=== PATIENT | female | born 1970 | race African-American/Black ===

== ENCOUNTER 2018-08-28 05:51 | Inpatient (IN) | payer OTHER ==
[~2018-08-28] VITALS: Ht 160 cm; Wt 85.7 kg
[2018-08-28] VITALS (16 sets, daily range): BP systolic 102–139; BP diastolic 68–92
[~2018-08-28 05:51] MED LIST: HYDROCHLOROTHIA25 MG ORAL; IBUPROFEN600 MG ORAL; LORATADINE10 M2 PO; LOSARTAN POTASS50 MG ORAL; OMEPRAZOLE20 M2 ORAL
[2018-08-28] MEDS ORDERED: LR 1000ml 1,000 ML IVLG SCH (06:19)
[2018-08-28] MEDS ORDERED: Zemuron 50mg/5ml Inj IV ONE (06:23)
[2018-08-28] MEDS ORDERED: Meperidine 50mg/ml Inj(FOR RIGORS ONLY) IVP PRN (06:30)
[2018-08-28] MEDS ORDERED: Acetaminophen (Non formulary) 100 ML IV ONE (06:30)
[2018-08-28] MEDS ORDERED: Atropine Sulfate 0.4mg/ml inj IVP PRN (06:30)
[2018-08-28] MEDS ORDERED: Ketorolac 30mg Inj IV PRN ×2 (06:30)
[2018-08-28] MEDS ORDERED: oxyCODONE HCL/Acetaminophen 5/325mg ORAL PRN (06:30)
[2018-08-28] MEDS ORDERED: Midazolam 2mg/2ml Inj IVP PRN (06:30)
[2018-08-28] MEDS ORDERED: Metoclopramide 10mg/2ml Inj IVP PRN (06:30)
[2018-08-28] MEDS ORDERED: LORazepam Inj 2mg/ml 1ml IV PRN (06:30)
[2018-08-28] MEDS ORDERED: DiphenhydrAMINE 50mg/ml Inj IVP PRN (06:30)
[2018-08-28] MEDS ORDERED: HYDROcodone/Acetamin 5/325 tab ORAL PRN ×2 (06:30→07:45)
[2018-08-28] MEDS ORDERED: HYDROcodone/Acetamin 7.5/325 tab ORAL PRN ×2 (06:30→07:45)
[2018-08-28] MEDS ORDERED: fentaNYL 100 mcg/2 mL IV PRN (06:30)
[2018-08-28] MEDS ORDERED: Hydromorphone 0.5mg/0.5ml inj IVP PRN (06:30)
--- NOTE | 2018-08-28 06:55 | NUR ---
IV LR WAS STARTED BY CULLEN ABDIOPS RN. NO S/S OF INFILTRATION.
[2018-08-28] MEDS ORDERED: Lidocaine 1% Plain 30 ml INJ ONE ×2 (06:57→09:56)
[2018-08-28] MEDS ORDERED: ceFAZolin sod 1 GM in NS 55 ML IVPB ONE (07:00)
[2018-08-28] MEDS ORDERED: Lidocaine 1% MPF 10mg/ml 5ml ONE (07:01)
[2018-08-28] MEDS ORDERED: Sodium Chloride 10ml vial INJ ONE (07:01)
[2018-08-28] MEDS ORDERED: Dexamethasone 4mg/ml vial ONE (07:01)
[2018-08-28] MEDS ORDERED: fentaNYL 100 mcg/2 mL IV ONE ×2 (07:02→08:19)
[2018-08-28] MEDS ORDERED: Vancomycin 1gm vial IVPB ONE (07:03)
[2018-08-28] MEDS ORDERED: Heparin 1000 units/ml 1ml Vial ONE (07:03)
[2018-08-28] MEDS ORDERED: Heparin 5000 units/ml inj ONE (07:03)
--- NOTE | 2018-08-28 07:05 | Anethesia Preoperative Eval ---
Anesthesia Pre-op PMH/ROS General Date of Evaluation: Aug 28, 2018 Time of Evaluation: 07:31 Anesthesiologist: Terrence ASA Score: ASA 3 Mallampati Score Class I : Soft palate, uvula, fauces, pillars visible Class II: Soft palate, uvula, fauces visible Class III: Soft palate, base of uvula visible Class IV: Only hard plate visible Mallampati Classification: Class II Surgeon: Sree Diagnosis: Back Pain Surgical Procedure: TLIF L5-S1 Anesthesia History: none Family History: no anesthesia problems Allergies: Coded Allergies: No Known Allergies (Unverified , 08/26/18) Medications: see eMAR Patient NPO?: Yes NPO Date: Aug 27, 2018 NPO Time: 2100 Past Medical History Cardiovascular: Reports: HTN Pulmonary: Reports: SHINE Gastrointestinal/Genitourinary: Reports: GERD Neurologic/Psychiatric: Reports: depression/anxiety, other - Migranes Hematology/Immune: Reports: other - SLE Other: obesity Anesthesia Pre-op Phys. Exam Physician Exam Last Vital Signs Date Time Temp Pulse Resp B/P (MAP) Pulse Ox O2 Delivery O2 Flow Rate FiO2 08/28/18 06:31 98.1 74 20 127/89 (102) 100 08/28/18 06:28 Room Air Constitutional: NAD Neurologic: CN 2-12 intact Cardiovascular: RRR Respiratory: CTA Gastrointestinal: S/NT/ND Airway Exam Mallampati Score: Class II MO: full ROM: limited Teeth: missing, intact Anesthesia Pre-op A/P Labs Urine Test Test 08/28/18 06:10 Urine HCG, Qualitative Negative (NEGATIVE) Risk Assessment & Plan Assessment: ASA 3 Plan: GA, SED, GlideScope Go Status Change Before Surgery: No Pre-Antibiotics Dru Grams Ancef IV Given Within 1 Hr of Incision: Yes Time Given: 07:46 Naeem Ocampo MD Aug 28, 2018 07:05
[2018-08-28] MEDS ORDERED: Gelfoam Size TOPIC ONE (07:08)
[2018-08-28] MEDS ORDERED: Bupivacaine w/Epi 0.5% 30ml Vial INJ ONE (07:08)
[2018-08-28] MEDS ORDERED: Thrombin 5000 units TOPIC ONE (07:08)
[2018-08-28] MEDS ORDERED: Bacitracin 50000 Units Vial ONE (07:09)
--- NOTE | 2018-08-28 07:24 | Pre-Procedure Note/Attestation ---
Pre-Procedure Note/Attestation Complete Prior to Procedure Procedure Narrative: TLIF L5S1 with BMAC and allograft Indications for Procedure Pre-Operative Diagnosis: l5S1 spondylosis, radiculopathy and annular tear and disc protrusion Attestation I attest that I discussed the nature of the procedure; its benefits; risks and complications; and alternatives (and the risks and benefits of such alternatives ), prior to the procedure, with the patient (or the patient's legal patient representative). I attest that, if there was a reasonable possibility of needing a blood transfusion, the patient (or the patient's legal patient representative) was given the [facility] standardized written summary, pursuant to the Sanjiv James Blood Safety Act ([place] Health and Safety Code # 1645, as amended). I attest that I re-evaluated the patient just prior to the surgery and that there has been no change in the patient's H&P, except as documented below: Kristopher Balbuena MD Aug 28, 2018 07:24
--- NOTE | 2018-08-28 07:29 | Immediate Post-Op Evaluation ---
Immediate Post-Op Evalulation Immediate Post-Op Evalulation Procedure: TLIF L5-S1 Date of Evaluation: Aug 28, 2018 Time of Evaluation: 12:02 IV Fluids: 800 LR Blood Products: 0 Estimated Blood Loss: 75 Urinary Output: 200 Blood Pressure Systolic: 125 Blood Pressure Diastolic: 79 Pulse Rate: 84 Respiratory Rate: 16 O2 Sat by Pulse Oximetry: 100 Temperature (Fahrenheit): 97.7 Pain Score (1-10): 3 Nausea: No Vomiting: No Complications 0 Patient Status: awake, reacts, patent, extubated, none Hydration Status: adequate Dru Grams Ancef IV Given Within 1 Hr of Incision: Yes Time Given: 07:46 Naeem Ocampo MD Aug 28, 2018 07:29
[2018-08-28] MEDS ORDERED: Propofol 1,000mg/ 100ml btl IV ONE (07:30)
[2018-08-28] MEDS ORDERED: LR 1000ml ONE (07:30)
[2018-08-28] MEDS ORDERED: Glycopyrrolate 0.2mg/ml 1ml Vial ONE ×2 (07:30→09:48)
[2018-08-28] MEDS ORDERED: Sterile Water Irrig 1000ml IRRIG ONE (07:30)
[2018-08-28] MEDS ORDERED: Neostigmine 1mg/ml 10ml Inj ONE (07:30)
[2018-08-28] MEDS ORDERED: NS Irrig 1000ml ONE (07:30)
[2018-08-28] MEDS ORDERED: HYDROmorphone 1mg/ml Carpuject IVP PRN (07:45)
[2018-08-28] MEDS ORDERED: HYDROmorphone 1mg/ml Carpuject SUBQ PRN (07:45)
[2018-08-28] MEDS ORDERED: Milk of Magnesia 30ml Ud ORAL PRN (07:45)
[2018-08-28] MEDS ORDERED: Naloxone 0.4mg/ml Inj IVP PRN (07:45)
--- NOTE | 2018-08-28 11:29 | Diagnostic Imaging Report ---
INDICATION: Pain, intraoperative, pain in back and bilateral lower extremities TECHNIQUE: Intraoperative imaging Fluoroscopy time: 28.8 seconds Total dose: 0.25067 mGym2 Total number of images: 3 COMPARISON: None FINDINGS: Initial image demonstrates surgical tool projecting posterior to what is presumably the L5-S1 disc space. Subsequent images document posterior fusion of L5-S1 and placement of a disc spacer. IMPRESSION: Intraoperative imaging, as described
--- NOTE | 2018-08-28 11:36 | Brief Operative Note ---
Immediate Post Operative Note Operative Note Pre-op Diagnosis: l5S1 spondylosis, radiculopathy and annular tear and disc protrusion Procedure: TLIF L5S1 with BMAC Post-op Diagnosis: same as pre-op Findings: consistent w/pre-op dx studies Surgeon: Sree Md Do Resident Urgent Care: [facility] Anesthesiologist: Stephon Anesthesia: general Specimen: yes - L5S1 disc Complications: none Condition: stable Fluids: 700cc Estimated Blood Loss: minimal - 75cc Drains: hemovac Implant(s) used?: Yes - RTI interbody device; Nuvasive pedicle screws Kristopher Balbuena MD Aug 28, 2018 11:36
--- NOTE | 2018-08-28 13:50 | NUR ---
NURSE NOTES: Received report from Nikki Charge nurse. Patient a/o x4 lying on the bed. Surgical back site dressing is dry and intact. Denies any pain at this time. Porter catheter is patent and yellowish. Bed in lowest position, call light within reach. Will continue to monitor.
[2018-08-28] MEDS: D5 1/2NS 1,000 ML IV SCH (14:15)
[2018-08-28] MEDS: ceFAZolin sod 1 GM in D5W 55 ML IV SCH ×2 (16:57→23:35)
[2018-08-28] MEDS: Docusate 100mg cap ORAL SCH (18:08)
--- NOTE | 2018-08-28 19:28 | NUR ---
HAND-OFF: Report given to DARSHANA Hinojosa. Patient in stable condition.
--- NOTE | 2018-08-28 20:12 | NUR ---
NURSE NOTES: Received patient awake,alert,verbal,resting in bed,uses incentive spirometer.
[2018-08-28] MEDS: Metoclopramide 10mg/2ml Inj IVP PRN (22:36)
[2018-08-29] VITALS: BP 120/76
[2018-08-29] MEDS: D5 1/2NS 1,000 ML IV SCH ×3 (01:53→20:35)
[2018-08-29 04:00] VITALS: BP 115/56
--- NOTE | 2018-08-29 07:26 | NUR ---
HAND-OFF: Report given to Em Hunt RN.
[2018-08-29 08:00] VITALS: BP 115/56
[2018-08-29] MEDS: ceFAZolin sod 1 GM in D5W 55 ML IV SCH (08:58)
[2018-08-29] MEDS: Docusate 100mg cap ORAL SCH ×2 (08:58→17:47)
--- NOTE | 2018-08-29 09:45 | 48 Hour Post Anesthesia Eval ---
Post Anesthesia Evaluation Procedure: TLIF L5-S1 Date of Evaluation: Aug 29, 2018 Time of Evaluation: 09:44 Blood Pressure Systolic: 124 0: 76 Pulse Rate: 72 Respiratory Rate: 20 Temperature (Fahrenheit): 97.6 O2 Sat by Pulse Oximetry: 98 Airway: patent Nausea: No Vomiting: No Pain Intensity: 3 Hydration Status: adequate Cardiopulmonary Status: stable Mental Status/LOC: patient returned to baseline Follow-up Care/Observations: n/a Post-Anesthesia Complications: none Follow-up care needed: N/A Jorden Gaxiola MD Aug 29, 2018 09:45
--- NOTE | 2018-08-29 10:12 | NUR ---
CASE MANAGEMENT:REVIEW 48 YR OLD FEMALE HERE FOR ELECTIVE SURGERY SI: LUMBAR SPONDYLOSIS 98.1 74 20 127/89 100% ON RA IS: TO SURGERY FOR: TLIF L5 S1 WITH BMAC : CURRENTLY IN SURGERY INTERQUAL CRITERIA MET
[2018-08-29] MEDS: Metoclopramide 10mg/2ml Inj IVP PRN ×2 (10:54→17:47)
--- NOTE | 2018-08-29 11:15 | NUR ---
Reort received from previous nurse assume care
--- NOTE | 2018-08-29 11:30 | NUR ---
Received awake and alert resp. even and unlabored. No acute distress noted. Assessment done no change from previous am assessment.
[2018-08-29 12:00] VITALS: BP 130/82
--- NOTE | 2018-08-29 12:51 | General Progress Note ---
Subjective ROS Limited/Unobtainable: Yes Constitutional: Reports: no symptoms HEENT: Reports: no symptoms Cardiovascular: Reports: no symptoms Respiratory: Reports: no symptoms Gastrointestinal/Abdominal: Reports: no symptoms Genitourinary: Reports: no symptoms Neurologic/Psychiatric: Reports: no symptoms Endocrine: Reports: no symptoms Hematologic/Lymphatic: Reports: no symptoms Allergies: Coded Allergies: LATEX (Verified Allergy, Severe, 08/28/18) swelling Subjective Doing well post op after lumbar fusion. Soreness in the back. Character of pain is different. no leg symptoms AVSS A and O times 3 dressing cdi hv min output adn dc's 5/5 motor in the LE and UE LT intact abd soft A: Doing well on post op day one. OOB and PT Brace on SCD's pain med post op instructions given fu 7 days Objective Last 24 Hour Vital Signs Date Time Temp Pulse Resp B/P (MAP) Pulse Ox O2 Delivery O2 Flow Rate FiO2 08/29/18 11:25 97.6 08/29/18 09:45 72 20 98 08/29/18 09:00 Room Air 08/29/18 08:00 97.8 66 18 115/56 (75) 100 08/29/18 07:02 97.8 08/29/18 04:00 97.8 66 18 115/56 (75) 100 08/29/18 00:00 96.6 67 18 120/76 (91) 100 08/28/18 21:00 Room Air 08/28/18 20:00 97.6 66 18 106/68 (81) 100 08/28/18 16:45 98.2 71 20 130/82 (98) 100 08/28/18 15:45 97.8 65 20 139/85 (103) 100 08/28/18 14:45 98.0 78 20 127/92 (104) 100 08/28/18 14:15 97.4 76 20 119/73 (88) 100 08/28/18 13:45 98.0 78 20 102/77 (85) 100 08/28/18 13:21 97.8 08/28/18 13:21 97.8 08/28/18 13:00 97.8 84 14 120/71 100 Nasal Cannula 3 Intake and Output 08/28/18 08/29/18 19:00 07:00 Intake Total 1300 ml 1205 ml Output Total 725 ml 450 ml Balance 575 ml 755 ml Intake IV Total 1300 ml 1205 ml Output Urine Total 550 ml 450 ml Drainage Total 100 ml Estimated Blood Loss 75 ml Height (Feet): 5 Height (Inches): 3.00 Weight (Pounds): 189 Kristopher Balbuena MD Aug 29, 2018 12:51
--- NOTE | 2018-08-29 15:35 | NUR ---
NURSE NOTES: Received report from DARSHANA Martinez. Patient a/o x4 and no respiratory distress noted. c/o back surgical site pain 12/01 and will be given pain medicine as MD ordered. Hemovac and lieberman catheter removed today. Patient did not void yet. Will f/u. Bed in lowest position, call light within reach. Will continue to monitor.
--- NOTE | 2018-08-29 15:35 | NUR ---
Report given to oncoming nurse.
[2018-08-29 16:00] VITALS: BP 131/74
--- NOTE | 2018-08-29 16:18 | NUR ---
P.T Note: P.T evaluation completed and treatment initiated per spinal protocol. Please refer to P.T evaluation for current functional status.
--- NOTE | 2018-08-29 19:10 | NUR ---
NURSE NOTES: Porter catheter was removed 1317pm today but patient did not void yet. Dr. Balbuena notified and ordered wait a few more hours. Will endorse to night nurse.
[2018-08-29 20:00] VITALS: BP 143/94
--- NOTE | 2018-08-29 20:00 | NUR ---
NURSE NOTES: Pt is in bed, awake and verbal. Pt has some family members by bedside. Pt states that her pain medication is not helping her pain. Dr. Balbuena was called, message left. Awaiting call back. Dressing dry and intact. Vitals stable. Pain medication is given as ordered PRN. Bed low in position,side rails up and call light within reach. Pt will be monitored.
--- NOTE | 2018-08-29 20:14 | NUR ---
HAND-OFF: Report given to DARSHANA Foster.
[2018-08-29] MEDS ORDERED: Tubing IV Secondary IV ONE (20:29)
[2018-08-29] MEDS ORDERED: D5 1/2NS 1000ml IV ONE (20:29)
[2018-08-30] VITALS: BP 133/80
[2018-08-30 04:00] VITALS: BP 108/68
--- NOTE | 2018-08-30 04:02 | NUR ---
NURSE NOTES: Pt ambulated to bathroom with assistance and voided.
[2018-08-30] MEDS: D5 1/2NS 1,000 ML IV SCH ×2 (04:11→18:01)
--- NOTE | 2018-08-30 07:10 | NUR ---
HAND-OFF: Report given to Maren Jasso RN.
--- NOTE | 2018-08-30 07:24 | NUR ---
NURSE NOTES: Received report from DARSHANA Foster. Rounding done with outgoing nurse. C/O pain on back surgical site 12/01 and will be given pain medicine as MD ordered. Back surgical site dressing dry and intact. IV patent. Patient on SCD. Bed in lowest position, call light within reach. Will continue to monitor.
[2018-08-30 07:31] LABS: BASOPHILS % (AUTO) 0.8 % (0.0-2.0); HEMATOCRIT 29.1 % (37.0-47.0); HEMOGLOBIN 9.2 G/DL (12.0-16.0); LYMPHOCYTES % (AUTO) 4.8 % (20.0-45.0); MEAN CORPUSCULAR VOLUME 84 FL (80-99); NEUTROPHILS % (AUTO) 84.4 % (45.0-75.0); PLATELET COUNT 278 K/UL (150-450); RED BLOOD COUNT 3.48 M/UL (4.20-5.40); RED CELL DISTRIBUTION WIDTH 14.3 % (11.6-14.8); WHITE BLOOD COUNT 12.2 K/UL (4.8-10.8)
--- NOTE | 2018-08-30 08:47 | NUR ---
NURSE NOTES: Patient's temperature 101.1 and HR 122, c/o headache. Notified to Dr. Balbuena and ordered EKG stat and call Dr. Will. Noted and carried out.
[2018-08-30] MEDS: Docusate 100mg cap ORAL SCH ×2 (08:48→18:00)
[2018-08-30 09:00] VITALS: BP 104/65
--- NOTE | 2018-08-30 09:21 | NUR ---
NURSE NOTES: Dr. Will notified and ordered 1. 2 set of B-cul 2. CMP 3. U/A FOOD CROPS FARM HAND 4. Chest x-ray Noted and carried out. Addendum: 08/30/18 at 1631 by May De La Garza RN ADDENDUM Patient temperature 101.1 and HR was 122. Apical HR was 120. Patient c/o tingling on bilateral hands.
[2018-08-30 09:42] LABS: ANION GAP 6 mmol/L (5-15); BLOOD UREA NITROGEN 10 mg/dL (7-18); CALCIUM 8.2 MG/DL (8.5-10.1); CARBON DIOXIDE 29 MMOL/L (21-32); CHLORIDE 101 MMOL/L (98-107); POTASSIUM 3.2 MMOL/L (3.5-5.1); SODIUM 136 MMOL/L (136-145)
[2018-08-30 09:47] LABS: ALANINE AMINOTRANSFERASE 20 U/L (12-78); ALBUMIN 2.9 G/DL (3.4-5.0); ALBUMIN/GLOBULIN RATIO 0.7 (1.0-2.7); ALKALINE PHOSPHATASE 71 U/L (46-116); ASPARTATE AMINO TRANSFERASE 25 U/L (15-37); BILIRUBIN,TOTAL 0.4 MG/DL (0.2-1.0)
--- NOTE | 2018-08-30 11:10 | NUR ---
NURSE NOTES: Notified to Dr. Will regarding EKG results and potassium 3.2.
[2018-08-30 12:00] VITALS: BP 120/59
[2018-08-30 12:10] LABS: APPEARANCE,URINE SLIGHTLY CLOUDY; BILIRUBIN, URINE NEGATIVE (NEGATIVE); COLOR,URINE BROWN; GLUCOSE, URINE (UA) NEGATIVE (NEGATIVE); KETONES,URINE 1+ (NEGATIVE); LEUKOCYTE ESTERASE ,URINE 1+ (NEGATIVE); NITRITE,URINE NEGATIVE (NEGATIVE); PH,URINE 6 (4.5-8.0); PROTEIN,URINE 2+ (NEGATIVE); UROBILINOGEN,URINE 1 MG/DL (0.0-1.0)
[2018-08-30] MEDS: Metoclopramide 10mg/2ml Inj IVP PRN (13:17)
--- NOTE | 2018-08-30 14:41 | NUR ---
PT Note Attempted to see patient for PT treatment but patient refused x 3.
[2018-08-30 16:00] VITALS: BP 110/73
[2018-08-30] MEDS: HYDROcodone/Acetamin 7.5/325 tab ORAL PRN ×3 (16:04→23:37)
--- NOTE | 2018-08-30 17:59 | Cardiology Progress Note ---
Assessment/Plan Assessment/Plan [id number] Objective Last 24 Hour Vital Signs Date Time Temp Pulse Resp B/P (MAP) Pulse Ox O2 Delivery O2 Flow Rate FiO2 08/30/18 16:00 98.2 98 17 110/73 (85) 95 08/30/18 12:00 98.3 101 18 120/59 (79) 90 08/30/18 09:30 99.9 120 08/30/18 09:19 99.9 08/30/18 09:00 101.1 122 20 104/65 (78) 93 08/30/18 09:00 Room Air 08/30/18 04:00 98.9 99 18 108/68 (81) 98 08/30/18 00:00 99.1 98 18 133/80 (97) 99 08/29/18 21:00 Room Air 08/29/18 20:00 99.3 98 18 143/94 (110) 100 Intake and Output 08/29/18 08/30/18 19:00 07:00 Intake Total 1100 ml 1620 ml Output Total 260 ml Balance 840 ml 1620 ml Intake Oral 400 ml 420 ml IV Total 700 ml 1200 ml Output Urine Total 200 ml Drainage Total 60 ml # Voids 1 Laboratory Tests Test 08/30/18 05:38 08/30/18 11:25 White Blood Count 12.2 K/UL (4.8-10.8) H Red Blood Count 3.48 M/UL (4.20-5.40) L Hemoglobin 9.2 G/DL (12.0-16.0) L Hematocrit 29.1 % (37.0-47.0) L Mean Corpuscular Volume 84 FL (80-99) Mean Corpuscular Hemoglobin 26.4 PG (27.0-31.0) L Mean Corpuscular Hemoglobin Concent 31.6 G/DL (32.0-36.0) L Red Cell Distribution Width 14.3 % (11.6-14.8) Platelet Count 278 K/UL (150-450) Mean Platelet Volume 6.6 FL (6.5-10.1) Neutrophils (%) (Auto) 84.4 % (45.0-75.0) H Lymphocytes (%) (Auto) 4.8 % (20.0-45.0) L Monocytes (%) (Auto) 10.0 % (1.0-10.0) Eosinophils (%) (Auto) 0.0 % (0.0-3.0) Basophils (%) (Auto) 0.8 % (0.0-2.0) Sodium Level 136 MMOL/L (136-145) Potassium Level 3.2 MMOL/L (3.5-5.1) L Chloride Level 101 MMOL/L (98-107) Carbon Dioxide Level 29 MMOL/L (21-32) Anion Gap 6 mmol/L (5-15) Blood Urea Nitrogen 10 mg/dL (7-18) Creatinine 1.0 MG/DL (0.55-1.30) Estimat Glomerular Filtration Rate > 60 mL/min (>60) Glucose Level 106 MG/DL (74-106) Calcium Level 8.2 MG/DL (8.5-10.1) L Total Bilirubin 0.4 MG/DL (0.2-1.0) Aspartate Amino Transf (AST/SGOT) 25 U/L (15-37) Alanine Aminotransferase (ALT/SGPT) 20 U/L (12-78) Alkaline Phosphatase 71 U/L (46-116) Total Protein 7.2 G/DL (6.4-8.2) Albumin 2.9 G/DL (3.4-5.0) L Globulin 4.3 g/dL Albumin/Globulin Ratio 0.7 (1.0-2.7) L Urine Color Brown Urine Appearance Slightly cloudy Urine pH 6 (4.5-8.0) Urine Specific [place] 1.020 (1.005-1.035) Urine Protein 2+ (NEGATIVE) H Urine Glucose (UA) Negative (NEGATIVE) Urine Ketones 1+ (NEGATIVE) H Urine Blood 1+ (NEGATIVE) H Urine Nitrite Negative (NEGATIVE) Urine Bilirubin Negative (NEGATIVE) Urine Urobilinogen 1 MG/DL (0.0-1.0) H Urine Leukocyte Esterase 1+ (NEGATIVE) H Urine RBC 0-2 /HPF (0 - 2) Urine WBC 5-10 /HPF (0 - 2) H Urine Squamous Epithelial Cells Moderate /LPF (NONE/OCC) H Urine Bacteria Few /HPF (NONE) Microbiology Date/Time Source Procedure Growth Status 08/28/18 06:55 Nasal Nares MRSA Culture - Final NO METHICILLIN RESISTANT STAPH AUREUS... Complete Jesse Will MD Aug 30, 2018 17:59
[2018-08-30] MEDS ORDERED: NS 250 ML IVPB ONE (18:00)
--- NOTE | 2018-08-30 19:20 | NUR ---
NURSE NOTES: Report taken from DARSHANA Jasso. patient awake and in bed, A&Ox4. No signs of distress on room air. She is having some pain, 5/10, radiating slightly to upper leg. IV site c/d/i and patent. Potassium was behind, bags were administered late, will continue with treatment as ordered. Surgical site c/d/i, with no skin issues. Patient tolerated dinner well. Orthostatic vitals to be taken per order. She needed assistance with log rolling to exit bed. Ambulated with assist to bathroom. Bed in lowest position, call light within reach.
[2018-08-30] MEDS ORDERED: Tubing IV Secondary IV ONE (19:58)
[2018-08-30] MEDS ORDERED: D5 1/2NS 1000ml IV ONE (19:58)
[2018-08-30 20:00] VITALS: BP_SYST 120; BP_SYST 133; BP_SYST 134; BP_DIAS 82; BP_DIAS 88; BP_DIAS 90
--- NOTE | 2018-08-30 22:46 | Consultation ---
DATE OF CONSULTATION: 08/30/2018 CARDIAC CONSULTATION CONSULTING PHYSICIAN: Jesse Will M.D. REFERRING PHYSICIAN: Kristopher Balbuena M.D. REASON FOR REFERRAL: Postoperative fevers and tachycardia. HISTORY OF PRESENT ILLNESS: This is a 48-year-old female, who has been seen by Dr. Moreno in preoperative consultation for Dr. Balbuena for surgery that occurred on 08/28/2018. The patient was notified about the patient's situation today as the patient was apparently tachycardic to the 120s with a fever of 101. Orders were given and subsequently have been carried out. On my arrival, the patient feels better. She actually had some numbness and tingling sensation in both of her hands only, but that lasted only for a short period of time and it has resolved. She does not have any chest pain or pressure. No PND. No orthopnea. No palpitation. No dizziness or lightheadedness at rest, although when she does get up to stand up, she does feel lightheaded and dizzy. PAST MEDICAL HISTORY: Positive for lupus and hypertension. Denies any heart attack, cancer, stroke, hepatitis, tuberculosis, asthma, emphysema, ulcers, kidney problems, liver problems, thyroid problems, anemia, or blood clots. No HIV or AIDS or any other medical problems. ALLERGIES: She is not allergic to any medications, although she is allergic to latex. SOCIAL HISTORY: She does not smoke. Does not use drugs. Occasional alcohol. REVIEW OF SYSTEMS: GASTROINTESTINAL: She did have some nausea and vomiting initially when she woke up from anesthesia, otherwise none. She has not had a bowel movement. She has passed gas though. She tolerated some liquid diet. GENITOURINARY: Negative. PULMONARY: Negative. CONSTITUTIONAL: She did not have any chills although she did have fevers today. NEUROLOGICAL: No paralysis, weakness, or any other neurological issues. She has been up and about to the bathroom. PHYSICAL EXAMINATION: GENERAL: Shows to be a middle-aged female, in no respiratory distress. NECK: Supple. No jugular venous distention. LUNGS: Clear to auscultation and percussion. CARDIAC: Regular rate and rhythm. Borderline tachycardic. No heaves, thrills, or gallops noted. ABDOMEN: Soft and nontender. Bowel sounds are hypoactive. EXTREMITIES: She has no clubbing, cyanosis, or edema. She does not have pneumatic compression stockings in place as it was taken off so she can ambulate. NEUROLOGICAL: She is awake, alert, and responsive. Moves all four extremities. LABORATORY DATA: White count 12.3, hemoglobin 9.2, and a platelet count of 278,000. Sodium is 136, potassium 3.2, chloride 101, bicarb 29, BUN of 10, creatinine of 1.0, and a glucose of 106. Liver function tests are otherwise unremarkable. Her urinalysis shows 5 to 10 wbc's, 0 to 2 rbc's, 1+ leukocyte esterase, and 1+ urobilinogen. Her HCG was negative when checked. In direct comparison with her laboratories that she had done at Dr. Moreno's office, her hemoglobin at that time was decreased although it is difficult for me to see what the level was. It appears to be in the low category and possibly 10.1. She did have an electrocardiogram performed that showed sinus tachycardia at the rate of 122, normal QRS axis, no ST or T-wave abnormalities on direct comparison with prior EKG at the rate of 86 previously and was 122 earlier today. Blood cultures have been ordered. A chest x-ray has been ordered as well, was performed, and is not reported yet. ASSESSMENT: 1. Sinus tachycardia. 2. Orthostatic symptoms. 3. Fever. 4. Status post spine surgery. 5. Back pain status post lumbar fusion. 6. Systemic lupus erythematosus history. 7. Arthritis related to that. PLAN: Dr. Balbuena, this patient was seen in cardiac consultation. The patient does endorse some orthostatic symptoms of blood pressure relatively okay at this time although she has had low levels of 104/65 to 120/59, heart rate is in the 98 to 122 range ____ at the present time is 98, temperature of 101.1 earlier, but at this time is 98.2. The patient will be monitored. Urinalysis was noted. She is on some Ancef at the present time. Await the final culture and sensitivity. Blood cultures are pending at this time. IV fluids will be increased. The patient just started to take some liquids. She has not had a bowel movement. Incentive spirometer was encouraged to be used on a regular basis to prevent atelectatic cause of fevers that may be what is happening and the patient apparently was not using that before. DVT prophylaxis with the use of pneumatic compression stockings and the patient will be followed. Jesse Will M.D. DR: DAVID JOB#: [id number] CC:
[2018-08-31] VITALS: BP 113/77
--- NOTE | 2018-08-31 00:46 | Operative Note - Dictated ---
DATE OF OPERATION: 08/28/2018 PREOPERATIVE DIAGNOSIS: L5-S1 spondylosis with annular tear and lower extremity radiculopathy with positive concordant pain at L5-S1. POSTOPERATIVE DIAGNOSIS: L5-S1 spondylosis with annular tear and lower extremity radiculopathy with positive concordant pain at L5-S1. PROCEDURE PERFORMED: 1. Posterior interbody fusion at L5-S1. 2. Posterolateral arthrodesis at L5-S1. 3. Pedicle screw instrumentation at L5-S1. 4. Insertion of biomechanical device at L5-S1. 5. Use of allograft and local autograft for interbody and posterolateral fusion. 6. Right ilium bone marrow aspiration and subsequent concentration for fusion. 7. Microscope for microdissection. SURGEON: Kristopher Balbuena M.D. WEB SERVICES DEVELOPER: Quinten Landa M.D. ANESTHESIA: General endotracheal anesthesia. ANESTHESIOLOGIST: Naeem Ocampo M.D. INTRAOPERATIVE FINDINGS: Spondylosis at L5-S1 with stenosis, disc protrusion, and impingement of the neural elements. EBL: 75 mL. FLUIDS: 700 mL crystalloid. INDICATIONS: The patient is a pleasant female, who has failed nonoperative treatment and continued to be symptomatic despite nonoperative treatments and option for above treatment was given. Risks, alternatives, and benefits were discussed with the patient at length. Risks include, but not limited to, anesthesia complications including , medical complications including liver, kidney, cardiopulmonary deficits, bleeding, infection, dural leak, CSF leak, nerve root injury, pars fracture, instability, reherniation, as well as continued symptoms. The patient understood and wished to proceed. Written and verbal consent was given. OPERATION IN DETAIL: The patient was brought into the operating room supine on a stretcher. Subsequently, appropriate IV lines were placed and 2 g of Ancef was administered preoperatively. A surgical time-out was called. Anesthesia was induced. The patient was successfully intubated. Sequential compression devices were placed onto the bilateral lower extremities. A Porter was placed under sterile conditions. The patient was gently turned prone onto the Robert frame table. All bony prominences were well padded and the abdomen was assured to lie freely. The L5-S1 interspace was positively identified via fluoroscopy preoperatively and an indelible marker was used to maryana the midline. The patient was prepped and draped in the usual sterile fashion with alcohol, chlorhexidine scrub, ChloraPrep, and Ioban draping. An incision was carried out in the midline, and at this point, a subperiosteal dissection of the laminas of L5 and S1 was carried out. A radiopaque marker was placed at the lower pedicle level and the S1 pedicle was positively identified. Kevin retractors were set into place, and at this point, attention was diverted to doing decompression with a high-speed drill, straight and curved curettes, #2 to #5 Kerrison punches, and interlumbar laminotomy, medial facetectomy, and removal of the ligamentum flavum was initially done on the right side. Secondarily, an osteotomy of the L5 inferior articular facet and S1 superior articular facet was carried out. There was significant impingement in the foramina and decompression was done for complete decompression of the exiting L5 nerve root and the traversing and exiting S1 nerve root. Once this was accomplished, attention was diverted to dissecting out the disc with the use of an intraoperatively sterilely draped microscope. The S1 nerve root and the L5 nerve root were carefully dissected from their adhesions and carefully retracted for diskectomy. A disk protrusion was found impinging on the neural elements, and with a #11 blade, a box incision was made into the posterior annulus, and with miguel a, Mihaela pituitary rongeurs, Peapod, a Stephen box curette, a radical diskectomy was accomplished at L5-S1. Endplate cartilage was removed. Endplate bone was well preserved and an interspinous device distractor was set into place and trial from the RTI TETRA Link system was used and a #9 trial was found to fit the interbody space well and close the interbody space well and was a stable trial. Therefore, a #9 mm lordotic RTI TETRAfuse implant was chosen was packed with bone morphogenic protein, Benzie allograft, local autograft, as well as bone marrow aspirate concentrate. Please note that before the fascial incision, 30 mL of bone marrow was aspirated from the posterior aspect of the right ilium with a Jamshidi needle through a separate fascial incision, three 10 vial mL of bone marrow aspiration was acquired and sent off sterilely for concentration for stem cells. The stem cells were also placed into the interbody space previously before the biomechanical device was inserted. Bone allograft as well as local autograft as well as bone marrow concentrate was placed in the anterior interbody space. Secondarily, the biomechanical device was inserted and was found to re-create disc height, oppose the endplates well and did not violate the endplate. At this point, AP and lateral fluoroscopy revealed the interbody device to be in good position, and at this point, attention was diverted to placement of the pedicle screws. A high-speed drill was used at the level of the mammillary processes to find the center of the pedicles. Once the center of the pedicles were found, lengthy probe was used to penetrate the center of the pedicle into the respective vertebral bodies. A ball-tip probe and tap and ball-tip probe again were used. There were no cortical breaches and finally pedicle screws from the [employer] Reline System was used at L5 bilaterally. The 6.5 x 40 mm screws were placed at S1 bilaterally. Each screw had excellent purchase and there was no evidence of breach via fluoroscopy. Once this was done, the wound was copiously irrigated with triple antibiotic solution. Valsalva was done at 40 mmHg. There was no CSF leak. Complete decompression of the right L5 and S1 nerve roots was done as well as the central canal. The floor of the canal was found to be flat. There was no further disk protrusion. No further impingement and tension at this point was diverted to posterolateral arthrodesis. A thorough decortication of the left facet joint lamina and transverse processes was done and local autograft Sandra bone marrow aspirate concentrate was placed for posterolateral fusion. Once this was completed, the bone graft was protected. The wound was copiously irrigated with triple antibiotic solution and attention was diverted to placement of the fabiola. Lordotic rods were placed bilaterally at L5-S1. Set screws were placed. There was no cross threading. Torquing of the set screws was done appropriately. Final AP and lateral fluoroscopy revealed all instrumentation to be in excellent position. At this point, all sponge, needle, and instrument counts were correct. A 4 mL of Tisseel was placed to the posterior annulotomy site. The dorsal lumbar fascia was closed with #1 Vicryl sutures in a watertight interrupted fashion. All sponge, needle, and instrument counts were correct. A 1 g of vancomycin powder was placed subfascially and suprafascially. A medium Hemovac drain was placed subfascially. The subdermal and subcuticular layers were closed with 2-0 Vicryl sutures. The skin was closed with Steri-Strips. Sterile dressing tape was placed. The patient was turned supine, was extubated in stable condition, and found to be neurovascularly intact, and was taken to recovery room for observation and admission to the hospital. Kristopher Balbuena M.D. DR: YESI JOB#: [id number] CC: [email or web address]
[2018-08-31] MEDS: D5 1/2NS 1,000 ML IV SCH ×2 (02:07→12:22)
[2018-08-31 04:00] VITALS: BP 109/70
--- NOTE | 2018-08-31 07:40 | NUR ---
NURSE NOTES: Received report from DARSHANA Delgado. Patient a/o x 4. Patient stat feel better that yesterday. Questions answered. Recommended doing I/S properly. Bed in lowest position, call light within reach. Will continue to monitor.
[2018-08-31 07:51] LABS: BASOPHILS % (AUTO) 0.2 % (0.0-2.0); EOSINOPHILS % (AUTO) 0.9 % (0.0-3.0); HEMATOCRIT 25.4 % (37.0-47.0); HEMOGLOBIN 8.2 G/DL (12.0-16.0); LYMPHOCYTES % (AUTO) 10.6 % (20.0-45.0); MEAN CORPUSCULAR VOLUME 83 FL (80-99); MONOCYTES % (AUTO) 7.7 % (1.0-10.0); NEUTROPHILS % (AUTO) 80.6 % (45.0-75.0); PLATELET COUNT 247 K/UL (150-450); RED BLOOD COUNT 3.07 M/UL (4.20-5.40); RED CELL DISTRIBUTION WIDTH 13.8 % (11.6-14.8); WHITE BLOOD COUNT 10.2 K/UL (4.8-10.8)
[2018-08-31 08:00] VITALS: BP 143/91
[2018-08-31 08:02] LABS: ANION GAP 6 mmol/L (5-15); BLOOD UREA NITROGEN 7 mg/dL (7-18); CALCIUM 8.3 MG/DL (8.5-10.1); CARBON DIOXIDE 28 MMOL/L (21-32); CHLORIDE 105 MMOL/L (98-107); CREATININE 0.9 MG/DL (0.55-1.30); POTASSIUM 3.1 MMOL/L (3.5-5.1); SODIUM 138 MMOL/L (136-145)
[2018-08-31] MEDS: Docusate 100mg cap ORAL SCH ×2 (08:38→17:28)
--- NOTE | 2018-08-31 09:20 | NUR ---
NURSE NOTES: Patient's last BM was 08/26, 5 days ago. Recommened MOM will be given but patient refused to take laxatives at this time.
--- NOTE | 2018-08-31 09:36 | NUR ---
CHARGE NURSE NOTE: Pt is scheduled to be discharged. (discharge date 08/29/18). Pt refused; states that she is still experiencing a lot of pain in her lower back. called, message left.
[2018-08-31] MEDS ORDERED: NS 275ml ONE (10:12)
[2018-08-31] MEDS ORDERED: D5 1/2NS 1000ml IV ONE ×2 (10:12→15:35)
[2018-08-31] MEDS ORDERED: Tubing IV Secondary IV ONE (10:12)
[2018-08-31 12:00] VITALS: BP_SYST 121; BP_SYST 132; BP_SYST 137; BP_DIAS 77; BP_DIAS 80; BP_DIAS 81
[2018-08-31] MEDS: HYDROcodone/Acetamin 7.5/325 tab ORAL PRN ×3 (12:23→23:12)
--- NOTE | 2018-08-31 12:55 | NUR ---
NURSE NOTES: Potassium 3.[address] Will notified. ordered kcl 40meq po one time and kcl 20meq IV one time. Noted and carried out.
--- NOTE | 2018-08-31 14:06 | Cardiology Progress Note ---
Assessment/Plan Assessment/Plan 1. Sinus tachycardia. 2. Orthostatic symptom recolved 3. Fever. 4. Status post spine surgery. 5. Back pain status post lumbar fusion. 6. Systemic lupus erythematosus history. 7. Arthritis related to that. cx so fare neg k supplement ambulating has been dc bu refuses to leave iv pain med dcd was told to fu with pmd next week to check k level korey castles been on hctz at home Subjective Cardiovascular: Denies: chest pain, lightheadedness Respiratory: Denies: shortness of breath Gastrointestinal/Abdominal: Denies: abdominal pain Genitourinary: Denies: burning Subjective no bm but had flatus Objective Last 24 Hour Vital Signs Date Time Temp Pulse Resp B/P (MAP) Pulse Ox O2 Delivery O2 Flow Rate FiO2 08/31/18 12:00 98.3 83 19 121/77 (92) 97 137/80 (99) 132/81 (98) 08/31/18 09:00 Room Air 08/31/18 08:00 98.1 65 18 143/91 (108) 92 08/31/18 04:00 98.2 92 18 109/70 (83) 95 08/31/18 00:00 98.2 93 18 113/77 (89) 97 08/30/18 21:00 Room Air 08/30/18 20:00 97.7 98 17 120/82 (95) 95 134/88 (103) 133/90 (104) 08/30/18 16:00 98.2 98 17 110/73 (85) 95 General Appearance: alert Neck: supple Cardiovascular: normal rate, regular rhythm Respiratory/Chest: lungs clear, normal breath sounds Abdomen: normal bowel sounds, non tender, soft Extremities: no swelling Intake and Output 08/30/18 08/31/18 19:00 07:00 Intake Total 500 ml 1100 ml Balance 500 ml 1100 ml Intake Oral 1100 ml IV Total 500 ml # Voids 7 Laboratory Tests Test 08/31/18 06:15 White Blood Count 10.2 K/UL (4.8-10.8) Red Blood Count 3.07 M/UL (4.20-5.40) L Hemoglobin 8.2 G/DL (12.0-16.0) L Hematocrit 25.4 % (37.0-47.0) L Mean Corpuscular Volume 83 FL (80-99) Mean Corpuscular Hemoglobin 26.7 PG (27.0-31.0) L Mean Corpuscular Hemoglobin Concent 32.3 G/DL (32.0-36.0) Red Cell Distribution Width 13.8 % (11.6-14.8) Platelet Count 247 K/UL (150-450) Mean Platelet Volume 6.6 FL (6.5-10.1) Neutrophils (%) (Auto) 80.6 % (45.0-75.0) H Lymphocytes (%) (Auto) 10.6 % (20.0-45.0) L Monocytes (%) (Auto) 7.7 % (1.0-10.0) Eosinophils (%) (Auto) 0.9 % (0.0-3.0) Basophils (%) (Auto) 0.2 % (0.0-2.0) Sodium Level 138 MMOL/L (136-145) Potassium Level 3.1 MMOL/L (3.5-5.1) L Chloride Level 105 MMOL/L (98-107) Carbon Dioxide Level 28 MMOL/L (21-32) Anion Gap 6 mmol/L (5-15) Blood Urea Nitrogen 7 mg/dL (7-18) Creatinine 0.9 MG/DL (0.55-1.30) Estimat Glomerular Filtration Rate > 60 mL/min (>60) Glucose Level 91 MG/DL (74-106) Calcium Level 8.3 MG/DL (8.5-10.1) L Microbiology Date/Time Source Procedure Growth Status 08/30/18 11:25 Urine,Clean Catch Urine Culture - Preliminary Resulted Jesse Will MD Aug 31, 2018 14:06
[2018-08-31] MEDS ORDERED: Sodium Chloride for KCL Premix x 2hrs IV SCH (14:15)
--- NOTE | 2018-08-31 15:05 | NUR ---
NURSE NOTES: Dr. Balbuena ordered raised toilet seat. Noted and carried out.
--- NOTE | 2018-08-31 15:15 | NUR ---
NURSE NOTES: IV site on right forearm is infiltrated and patient refused to get IV insertion. 2nd bag of KCl is running at this time. Dr. Will notified and ordered ok to remove IV.
[2018-08-31] MEDS ORDERED: NS 500ML ONE (15:35)
[2018-08-31 16:00] VITALS: BP 143/86
--- NOTE | 2018-08-31 16:13 | NUR ---
PT Note Attempted to see patient for treatment but patient refused. Charge nurse was notified of patient's refusals of PT treatments.
--- NOTE | 2018-08-31 19:34 | NUR ---
HAND-OFF: Report given to DARSHANA Delgado. Patient in stable condition.
--- NOTE | 2018-08-31 19:35 | NUR ---
NURSE NOTES: Report taken from DARSHANA Jasso. Patient awake and in bed, A&Ox4. DC in the am, family member will be coming to take her home. Is ambulating well, pain at 4/10. No signs of distress on room air. SHe would like to go home with a raised commode, will endorse to morning RN. No skin issues. No IV access, made aware. Call light within reach, bed in lowest position.
[2018-08-31 21:00] VITALS: BP 115/73
[2018-09-01 00:04] VITALS: BP 106/63
[2018-09-01] MEDS: HYDROcodone/Acetamin 7.5/325 tab ORAL PRN ×2 (05:47→09:55)
--- NOTE | 2018-09-01 07:45 | NUR ---
NURSE NOTES:RECEIVED PATIENT A/OX4,ROOM AIR,EATING BREAKFAST,LOOKS MUCH BETTER COMPARED 2DAYS AGO,CLAIMS PAIN LEVEL STILL 12/31(PAIN ME DUE AT 0947)PATIENT AWARE. BUT MORE PROACTIVE IN AMBULATING USING WALKER.BACK DRSDAREN.C/D/I.WANTS TO GO HOME TODAY.WILL CONTINUE PLAN OF CARE.
[2018-09-01 08:00] VITALS: BP 127/79
--- NOTE | 2018-09-01 08:45 | NUR ---
NURSE NOTES:DR. FRY AND DR. HUITRON CLEARED FOR D/C TODAY.
[2018-09-01] MEDS: Docusate 100mg cap ORAL SCH (09:14)
--- NOTE | 2018-09-01 09:50 | NUR ---
NURSE NOTES:D/C INSTRUCTIONS INCLUDING BELONGINGS AND RX OF PERCOCET DISCUSSED WITH PATIENT,VERBALIZED UNDERSTANDING.
[2018-09-01 12:00] VITALS: BP 139/83
--- NOTE | 2018-09-01 13:10 | NUR ---
NURSE NOTES:picked up by friend,d/c by private vehicle.lumbar brace on,including rx of percocet.patient stable on d/c.[facility],ambulatory.refused to use wheelchair.
--- NOTE | 2018-09-03 12:58 | Discharge Summary ---
Discharge Summary Hospital Course Date of Admission Aug 28, 2018 at 05:51 Date of Discharge Sep 01, 2018 at 13:10 Admitting Diagnosis lumbar radiculopathy Reason for Hospitalization: elective surgery HPI Bev Mejias is a 48 year old female who was admitted on Aug 28, 2018 at 05:51 for Lumbar Spondylosis, Radiculopathy L5-S1. Patient was admitted for elective surgery. Consultations Dr Will - IM/cardio Procedures s/p 08/28/[address] Balbuena 1. Posterior interbody fusion at L5-S1. 2. Posterolateral arthrodesis at L5-S1. 3. Pedicle screw instrumentation at L5-S1. 4. Insertion of biomechanical device at L5-S1. 5. Use of allograft and local autograft for interbody and posterolateral fusion. 6. Right ilium bone marrow aspiration and subsequent concentration for fusion. 7. Microscope for microdissection. Hospital Course status post surgery course of recovery uneventful initially IV fluids s/p perioperative antibiotics neurovascular status closely monitored, stable , incision clean ,dry and intact initially Hemovac, output closely monitored, small amount, Hemovac subsequently discontinued pain management addressed; pain controlled hemodynamically stable ambulated with PT DVT prophylaxis provided first postop day mild leukocytosis , and fever use of incentive spirometry was encouraged while in the bed mobilization out of bed was encouraged UA with mixed urogenital contaminants, blood culture negative, leukocytosis resolved next day, no fevers fall precautions maintained; safe for ambulation tolerated diet , IV fluids discontinued GI prophylaxis provided antiemetics were on board as needed voided freely bowel regimen instituted patient was stable for discharge discharge instructions provided follow up with surgeon as outpatient as advised by surgeon FINAL DIAGNOSES L5-S1 spondylosis with annular tear and lower extremity radiculopathy with positive concordant pain at L5-S1 Spondylosis at L5-S1 with stenosis, disc protrusion, and impingement of the neural elements s/p TLIF L5S1 with BMAC Systemic lupus erythematosus history. Arthritis related to SLE Discharge Medications Continued Medications: Loratadine (Loratadine) 10 Mg Tablet 10 MG PO DA, TAB (This prescription has been renewed) Losartan Potassium* (Losartan Potassium*) 50 Mg Tablet 50 MG ORAL DAILY, TAB (This prescription has been renewed) Omeprazole (Omeprazole) 20 Mg Capsule.dr 20 MG ORAL DAILY, CAP (This prescription has been renewed) Discontinued Medications: Hydrochlorothiazide* (Hydrochlorothiazide*) 25 Mg Tablet 25 MG ORAL DAILY, TAB Ibuprofen* (Motrin*) 600 Mg Tablet 800 MG ORAL , #30 TAB 0 Refills Discharge Condition Upon Discharge: stable Discharge Disposition Patient was discharged to Home (01) Discharge Instructions Discharge Instructions Special Instructions I have been assigned to complete a D/C Summary on this account. I was not involved in the patient management Clarissa Parisi NP Sep 03, 2018 12:58
--- NOTE | 2018-09-04 09:33 | Cardiology Report ---
APPROVED REPORT EKG Measurement Heart [id number] MI 96P [id number] Sinus tachycardia with short MI Nonspecific ST and T wave abnormality Abnormal ECG
== END 2018-09-01 13:10 | disposition home or self-care (01) | DRG 455 ==
LOC: SDSOVERFLO 05:51 → 3E 13:40
PROC: 0ST40ZZ Resection of Lumbosacral Disc, Open Approach (ICD-10-PCS; principal; 2018-08-28 07:30)
PROC: 0SG30AJ Fusion of Lumbosacral Joint with Interbody Fusion Device, Posterior Approach, Anterior Column, Open Approach (ICD-10-PCS; principal; 2018-08-28 07:30)
PROC: 3E0U0GB Introduction of Recombinant Bone Morphogenetic Protein into Joints, Open Approach (ICD-10-PCS; principal; 2018-08-28 07:30)
PROC: 0SG3071 Fusion of Lumbosacral Joint with Autologous Tissue Substitute, Posterior Approach, Posterior Column, Open Approach (ICD-10-PCS; principal; 2018-08-28 07:30)
PROC: 07DR3ZZ Extraction of Iliac Bone Marrow, Percutaneous Approach (ICD-10-PCS; principal; 2018-08-28 07:30)
DX: M47.27 Other spondylosis with radiculopathy, lumbosacral region (principal); D64.9 Anemia, unspecified; I10 Essential (primary) hypertension; G47.33 Obstructive sleep apnea (adult) (pediatric); M06.9 Rheumatoid arthritis, unspecified; R50.82 Postprocedural fever; R00.0 Tachycardia, unspecified
CPT/HCPCS: 36415; 71045; 72020; 76000; 80048; 80053; 81001; 81025; 85025; 86850; 86900; 86901; 87040; 87081; 87086; 93005; 94003; 94150; J2405; J2710; J2765; J8499